=== PATIENT | male | born 2000 | race Hispanic/Latino ===

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

== ENCOUNTER 2022-10-23 01:01 | Emergency (ER) | payer OTHER, BC ==
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
[2022-10-23 02:34] VITALS: TEMP 98.2; O2SAT 100
[2022-10-23 02:35] VITALS: BP 123/64
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
== END 2022-10-23 02:29 | disposition home or self-care (01) ==
LOC: ER 01:01
DX: M54.9 Dorsalgia, unspecified (principal); M54.6 Pain in thoracic spine; V43.52XA Car driver injured in collision with other type car in traffic accident, initial encounter
CPT/HCPCS: 72040; 72070; 99283